=== PATIENT | female | born 1970 | race American Indian/Alaskan Native ===

== ENCOUNTER 2018-03-19 01:45 | Emergency (ER) | payer BC, OTHER ==
[~2018-03-19] VITALS: Ht 165.1 cm; Wt 115.7 kg
[2018-03-19] MEDS ORDERED: BUSPIRONE HCL5 MG (02:00)
[2018-03-19] MEDS ORDERED: AMOXICILLIN500 MG PO (02:13)
[2018-03-19] MEDS ORDERED: TRAMADOL HCL50 MG PO (02:13)
== END 2018-03-19 02:43 | disposition home or self-care (01) ==
LOC: ED 01:45
DX: K02.9 Dental caries, unspecified (principal); K03.81 Cracked tooth; Z88.5 Allergy status to narcotic agent
CPT/HCPCS: 99283